=== PATIENT | female | born 1955 | race Caucasian/White ===

== ENCOUNTER 2022-09-01 12:24 | Emergency (ER) | payer SELFPAY ==
[2022-09-01] MEDS ORDERED: Boostrix 0.5 ML (Tdap) VIAL (>/=7 yrs of age) ONE (12:42)
[2022-09-01] MEDS ORDERED: Bupivacaine 0.5% 10 ML VIAL ONE (13:48)
[2022-09-01] MEDS ORDERED: Bacitracin 1 PK ONE (14:16)
== END 2022-09-01 14:49 | disposition home or self-care (01) ==
LOC: BURERS 12:24
DX: S61.411A Laceration without foreign body of right hand, initial encounter (principal); F17.210 Nicotine dependence, cigarettes, uncomplicated; W29.3XXA Contact with powered garden and outdoor hand tools and machinery, initial encounter; Z23 Encounter for immunization
CPT/HCPCS: 12002; 90471; 90715; J3490